=== PATIENT | female | born 1980 | race Caucasian/White ===

== ENCOUNTER 2018-01-20 09:18 | Emergency (ER) | payer MEDICAID, SELFPAY ==
[2018-01-20 09:22] VITALS: BP 161/84; PULSE 87; RESP 18; TEMP 36.6; O2SAT 96; BMI 46.5
--- NOTE | 2018-01-20 09:39 | ED.DCSUM_ITS ---
- ER Visit Summary Date of Service: 01/20/18 Chief Complaint: Pain and swelling of the right long finger History of Present Illness: The patient is a 37 F who presents with pain and swelling of the right long finger. She first noticed it yesterday. She denies any history of injury or wound. Pain is sharp. It is worsened with palpation or flexion of the digit. She denies any systemic symptoms such as fevers nausea or vomiting. Physical Examination: Afebrile vitals are unremarkable Heart regular No respiratory distress There is erythema swelling and tenderness over the dorsal right long finger overlying the middle phalanx she does not have fusiform swelling of the digit she has pain with flexion but no pain with passive extension she has no tenderness along the palmar aspect of the digit. Active full range of motion brisk capillary refill normal distal sensation no pain with short arc range of motion of the DIP and PIP Test Results: Not indicated Emergency Department Course and Treatment: Patient appears to have a cellulitis along the back of her finger. I do not see evidence at this time of process such as septic arthritis or flexor tenosynovitis. Patient was given a prescription for Keflex. She was given clear instructions of specific signs and symptoms to monitor for and conditions under which to return to the emergency department. All questions answered at bedside. Patient agreeable to plan. She was discharged. Treatment Plan: [] Disposition: Discharge Impression: Cellulitis of right long finger This note was generated with [employer] dictation software. It may contain incorrect words, spelling, and punctuation that were not noted in review of the chart prior to signing ED Disposition - Plan for ED Patient: Chief Complaint: Cellulitis Referrals: Care Physician,No Primary [Primary Care Provider] -
--- NOTE | 2018-01-20 09:39 | ED.DEP ---
ED Disposition - Plan for ED Patient: Chief Complaint: Cellulitis Instructions: ED Infec Skin Cellulitis Prescriptions: Cephalexin [Keflex] 500 mg PO Q6 #40 cap Referrals: Care Physician,No Primary [Primary Care Provider] -
== END 2018-01-20 09:55 | disposition home or self-care (01) ==
LOC: ED 09:44
PROVIDERS: Emergency Provider Emergency Medicine
DX: L03.011 Cellulitis of right finger (principal)
CPT/HCPCS: 99282

== ENCOUNTER 2018-01-25 14:31 | Emergency (ER) | payer MEDICAID, SELFPAY ==
[2018-01-25 14:32] VITALS: BP 162/89; PULSE 89; RESP 16; TEMP 37.1; O2SAT 96; BMI 45.9
--- NOTE | 2018-01-25 15:32 | ED.VISSUMM ---
- ER Visit Summary Date of Service: 01/25/18 Chief Complaint: Swollen red painful right long finger History of Present Illness: The patient is a 37 F who presents with painful red swollen right finger. She is right-hand dominant. She denies any allergies. She is presently on cephalexin. She was seen on January 20 and diagnosed with cellulitis. She denies any fever, chills night sweats. She denies a traumatic fever, murmur, SBE, being immune suppressed. 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 Reports pain with movement of the right long finger. Please read written note for complete detail Physical Examination: Vital signs are remarkable for a blood pressure 162/89. BMI is 45.9. Heart is regular without murmur, gallop or rub. S1 and S2 are normal. Lungs are clear to auscultation with good movement of air bilaterally. The right long finger is swollen with erythema on the dorsal surface over the middle phalanx. There is fluctuance. There is no lymphangitis or epitrochlear lymphadenopathy. There is no pain palpation over the extensor commonness tendon dorsal side right hand. There is no pain to palpation over the flexor tendon is distal MCP joint. Test Results: None were obtained Emergency Department Course and Treatment: The digit was anesthetized by digital block using 1% lidocaine. An incision was made ulnar side with free flow of thick white purulent fluid. Blunt dissection was undertaken with more purulent material noted. The cavity was irrigated. Treatment Plan: Bactrim DS tab 1 twice daily in addition to the cephalexin she was prescribed January 20. Disposition: Discharge to home and follow-up with her assigned primary care physician per her insurance carrier, care source Impression: Subcutaneous abscess dorsal surface right long finger over middle phalanx status post I&D This note was generated with [employer] dictation software. It may contain incorrect words, spelling, and punctuation that were not noted in review of the chart prior to signing ED Disposition - Plan for ED Patient: Disposition: Home or Assisted Living Chief Complaint: Cellulitis Instructions: ED Abscess IandD Prescriptions: Smz/Tmp Ds [Bactrim Ds] 1 tab PO BID #14 tab Referrals: Care Physician,No Primary [Primary Care Provider] - 2 Days for wound check Additional Instructions: If you are unable to be seen by your primary care physician on Saturday, please return to the emergency room for wound reevaluation. Delay in care may result in significant injury and disability to your right long finger
[2018-01-25] MEDS: Smz/Tmp Ds Tablet 1 TABLET PO (15:43)
[2018-01-25 15:49] VITALS: BP 152/82; PULSE 83; RESP 16; O2SAT 98
== END 2018-01-25 15:50 | disposition home or self-care (01) ==
PROVIDERS: Emergency Provider Emergency Medicine
DX: L02.511 Cutaneous abscess of right hand (principal); E66.9 Obesity, unspecified; Z72.0 Tobacco use; Z79.2 Long term (current) use of antibiotics
CPT/HCPCS: 26010; 10060; 99283

== ENCOUNTER → 2018-03-04 14:29 | Outpatient (CLI) | payer MEDICAID, SELFPAY ==
--- NOTE | 2018-03-04 14:31 | RAD_ITS ---
STUDY: X-RAY - PELVIS AND LEFT HIP REASON FOR EXAM: Female, 37 years old. Pain, decreased range of motion TECHNIQUE: Radiological exam, hip, unilateral, with pelvis when performed; 2 or 3 views. 3 views obtained. COMPARISON: None. FINDINGS: There is a non-specific bowel gas pattern. Normal visualized soft tissue structures. Normal bilateral iliac wings, sacroiliac joints and visualized sacrum. Normal bilateral superior and inferior pubic rami. Normal pubic symphysis. Normal bilateral ischial tuberosities. Normal visualized femoral head. Normal acetabulum. Normal hip joint. RAD/Hip 2-3 Views with Pelvis IMPRESSION: Normal x-ray examination of the pelvis and hip. Electronically Signed: Erwin Stone MD at 10:40 EDT , Service support ,
--- NOTE | 2018-03-04 14:32 | RAD_ITS ---
STUDY: X-RAY - LUMBAR SPINE REASON FOR EXAM: Female, 37 years old. Low back pain TECHNIQUE: 5 view(s) of the lumbar spine were obtained. COMPARISON: None FINDINGS: Normal lumbar lordosis. There is no substantial scoliosis. There is a normal alignment of the vertebrae. Normal vertebral bodies and endplates. Normal disc space heights. The soft tissue structures are unremarkable. RAD/L/S Spine Min 4 Views IMPRESSION: Normal x-ray examination of the lumbar spine. Electronically Signed: Erwin Stone MD at 10:39 EDT , Service support ,
--- NOTE | 2018-03-04 14:35 | RAD_ITS ---
STUDY: X-RAY - SACRUM/COCCYX REASON FOR EXAM: Female, 37 years old. Pain TECHNIQUE: 3 view(s) of the sacrum and coccyx were obtained. COMPARISON: None. FINDINGS: Normal bilateral sacroiliac joints. Normal visualized sacral ala and fused sacral bodies. Normal sacrococcygeal junction with a normal angulation. Normal coccygeal segments. Contour irregularity noted at the sacrococcygeal junction suggesting previous traumatic injury. The presacral soft tissue structures are unremarkable. RAD/Sacrum-Coccyx min 2 Views IMPRESSION: No acute fracture or aggressive osseous lesion, Electronically Signed: Erwin Stone MD at 10:41 EDT , Service support ,
== END ==
DX: M25.552 Pain in left hip (principal); M54.5 Low back pain
CPT/HCPCS: 72110; 72220; 73502

== ENCOUNTER 2018-04-30 16:48 | Emergency (ER) | payer MEDICAID, SELFPAY ==
[2018-04-30 16:49] VITALS: BP 155/87; PULSE 94; RESP 18; TEMP 36.8; O2SAT 97; BMI 50.3
--- NOTE | 2018-04-30 17:11 | ED.VISSUMM ---
- ER Visit Summary Date of Service: 04/30/18 Chief Complaint: Dysuria History of Present Illness: The patient is a 37 F with burning with urination since yesterday. She also noted some blood when she urinated. No discharge or other symptoms. No fevers. No back pain. Physical Examination: Afebrile. Vitals unremarkable. Exam unremarkable. Abdomen soft. CVAs nontender. Skin appears normal. Test Results: Analysis and test pending. Emergency Department Course and Treatment: HCG negative. Urinalysis shows signs of an infection with hematuria. She has no pain to make me think of a stone. No risk for cancer. Will treat with Macrobid. She was referred to primary care for follow-up. Will need follow-up to document resolution. She was advised of this and she was advised to return if she has any issues. Treatment Plan: As above Disposition: Discharged Impression: 1. UTI, cystitis This note was generated with [employer] dictation software. It may contain incorrect words, spelling, and punctuation that were not noted in review of the chart prior to signing ED Disposition - Plan for ED Patient: Chief Complaint: Complaint Referrals: Care Physician,No Primary [Primary Care Provider] -
[2018-04-30 17:20] LABS: Mucous, Urine 0 SEEN /hpf (<or=2+)
[2018-04-30 17:34] LABS: Color, Urine Yellow (Yellow); Glucose, Dipstick Normal (Normal); Ketone-Dipstick 5 mg/dl (Negative); Leukocyte Esterase-Dipstick 100 /ul (Negative); Nitrite-Dipstick Negative (Negative); Occult Blood-Urine 150 /ul (Negative); Protein-Dipstick 30 mg/dl (Negative); Urine Bilirubin Dipstick Negative (Negative); Urine Clarity Clear (Clear); Urine Urobilinogen 1 mg/dl (Normal)
[2018-04-30 17:38] LABS: Internal QC Validated? YES +Cl - CLEAR BKGD; Pregnancy, Urine Negative Negative
[2018-04-30 17:40] LABS: Red Blood Cells-Urine 10-25 SEEN /hpf (0-5); White Blood Cells 0-5 SEEN /hpf (0-5)
[2018-04-30 17:41] LABS: Bacteria 1+ /hpf (None Seen); Squamous Epithelial Cells - UA 10-25 SEEN /hpf (5-10)
--- NOTE | 2018-04-30 18:07 | ED.DEP ---
ED Disposition - Plan for ED Patient: Chief Complaint: Complaint Instructions: ED UTI Cystitis Female Prescriptions: Nitrofurantoin Macrocrystals [Macrobid] 100 mg PO Q12 #14 cap Referrals: Cassandra Bullock DO [STAFF PHYSICIAN] -
[2018-04-30] MEDS: Nitrofurantoin Macrocrystals 100 MG Capsule PO (18:12)
[2018-04-30 18:13] VITALS: RESP 16
== END 2018-04-30 18:13 | disposition home or self-care (01) ==
PROVIDERS: Emergency Provider Emergency Medicine
DX: N39.0 Urinary tract infection, site not specified (principal); R31.9 Hematuria, unspecified; Z72.0 Tobacco use
CPT/HCPCS: 81001; 81025; 99283